=== PATIENT | male | born 1930 | race Hispanic/Latino ===

== ENCOUNTER 2018-12-30 11:19 | Emergency (ER) | payer OTHER ==
--- NOTE | 2018-12-30 12:06 | RAD REPORT ---
EXAM DESCRIPTION: CT - Head Brain Wo Cont - 12/30/2018 11:55 am CLINICAL HISTORY: headache COMPARISON: None TECHNIQUE: Computed axial tomography of the head was obtained. IV contrast was not requested. All CT scans are performed using dose optimization technique as appropriate and may include automated exposure control or mA/KV adjustment according to patient size. FINDINGS: An intracranial bleed is not seen . The ventricles are normal in caliber. No extra-axial fluid collection is noted. Moderate low-density areas within periventricular, deep and subcortical white matter likely represent ischemic changes secondary to small vessel disease. Fluid within the sinuses/ mastoids is not seen. IMPRESSION: No acute intracranial abnormality is seen. If patient's symptoms persist MRI of the bra in would be recommended.
--- NOTE | 2018-12-30 12:24 | RAD REPORT ---
EXAM DESCRIPTION: Wojciech Single View12/30/2018 12:19 pm CLINICAL HISTORY: Shortness of breath COMPARISON: 2016 FINDINGS: Moderate bilateral pulmonary opacities. Heart is mildly to moderately enlarged IMPRESSION: These findings probably represent CHF. Follow PA and lateral chest series recommended
[2018-12-30 12:37] LABS: Absolute Lymphocytes (CBC) 1.2 K/uL (0.7-4.9); Absolute Monocytes 0.8 K/uL (0.1-1.3); Absolute Neutrophil 5.6 K/uL (1.8-8.0); Basophils % 0.5 % (0-1.3); Eosinophils % 1.5 % (0-4.4); Hematocrit 23.6 % (39.6-49.0); Lymphocytes % 14.9 % (15.3-44.8); MPV 8.3 fL (7.6-11.3); Monocytes % 10.3 % (3.3-12.3); RBC Red Blood Cell Count 3.14 M/uL (4.33-5.43)
[2018-12-30] MEDS ORDERED: NA CHLORIDE 0.9% 1,000 ML ONE (12:39)
[2018-12-30 12:42] LABS: Protime INR 1.05
[2018-12-30 12:57] LABS: ALT/SGPT 10 U/L (12-78); AST/SGOT 11 U/L (15-37); Albumin 2.7 g/dL (3.4-5.0); Alkaline Phosphatase 81 U/L (45-117); BUN Blood Urea Nitrogen 22 mg/dL (7-18); Bicarbonate 21 mmol/L (21-32); Bilirubin Direct 0.1 mg/dL (0-0.2); Bilirubin Total 0.3 mg/dL (0.2-1.0); CKMB Creatine Kinase MB 1.1 ng/mL (0.3-3.6); Creatine Phosphokinase 52 U/L (39-308); Glucose Level 143 mg/dL (74-106); Lipase 267 U/L (73-393); Potassium 4.3 mmol/L (3.5-5.1); Protein, Total 6.5 g/dL (6.4-8.2); Sodium Level 139 mmol/L (136-145); Troponin (Emerg Dept Use Only) < 0.02 ng/mL (0.0-0.045)
[2018-12-30 16:02] LABS: Urine Blood NEGATIVE (NEG); Urine Glucose NEGATIVE (NEG); Urine Protein NEGATIVE (NEG); Urine pH 5.5 (5.0-7.0)
[2018-12-30 16:50] LABS: Urine Bacteria <20 /HPF (NONE SEEN); Urine Culture Reflex Order NOT NEEDED; Urine RBC <5 /HPF (NONE SEEN)
--- NOTE | 2018-12-30 17:20 | EDPHYS ---
Physician Documentation [facility] Name: Juan Carlos Lafleur Age: 88 yrs Sex: Male : 1930 Arrival Date: 12/30/2018 Time: 11:19 Bed 19 Private MD: ED Physician Isaac Bedoya HPI: 12/30 17:15 This 88 yrs old Male presents to ER via EMS with complaints of General pm1 Weakness, Headache. 17:15 The patient's problem is reported as weakness, that is generalized. pm1 17:15 Onset: The symptoms/episode began/occurred last night. Context: occurred at home. The pm1 symptoms are alleviated by nothing. The symptoms are aggravated by nothing. Associated signs and symptoms: Pertinent positives: headache, Pertinent negatives: abdominal pain, chest pain, shortness of breath, tingling, vomiting. Severity of symptoms: in the emergency department the symptoms are unchanged. Patient's baseline: Neuro: alert and fully oriented, Motor: no deficits, Speech: normal. The patient has not recently seen a physician. Historical: - Allergies: 11:22 No Known Drug Allergies; hj - PMHx: 11:22 Hypertension; Hyperlipidemia; Diabetes - NIDDM; hj - PSHx: 11:22 BKA; Wound Debridement; hj - Immunization history:: Adult Immunizations up to date. - Social history:: Smoking status: Patient/guardian denies using tobacco, Patient/guardian denies using alcohol. - Ebola Screening: : Patient negative for fever greater than or equal to 101.5 degrees Fahrenheit, and additional compatible Ebola Virus Disease symptoms Patient denies exposure to infectious person Patient denies travel to an Ebola-affected area in the 21 days before illness onset. ROS: 17:15 Constitutional: Negative for fever, chills, and weight loss, Eyes: Negative for injury, pm1 pain, redness, and discharge, ENT: Negative for injury, pain, and discharge, Neck: Negative for injury, pain, and swelling, Cardiovascular: Negative for chest pain, palpitations, and edema, Respiratory: Negative for shortness of breath, cough, wheezing, and pleuritic chest pain, Back: Negative for injury and pain, : Negative for injury, bleeding, discharge, and swelling, MS/Extremity: Negative for injury and deformity, Skin: Negative for injury, rash, and discoloration. 17:15 Abdomen/GI: Positive for diarrhea, Negative for abdominal pain, vomiting, constipation. 17:15 Neuro: Positive for headache, Negative for altered mental status, dizziness, numbness, seizure activity. Exam: 16:28 Abdomen/GI: Rectal exam: rectal tone normal, Stool: brown, guaiac negative, pm1 hemorrhoid(s), are not appreciated, mass, is not appreciated, Deny ALLAN. 17:15 Constitutional: This is a well developed, well nourished patient who is awake, alert, pm1 and in no acute distress. Head/Face: Normocephalic, atraumatic. 17:15 ENT: Nares patent. No nasal discharge, no septal abnormalities noted. Tympanic membranes are normal and external auditory canals are clear. Oropharynx with no redness, swelling, or masses, exudates, or evidence of obstruction, uvula midline. Mucous membranes moist. Neck: Trachea midline, no thyromegaly or masses palpated, and no cervical lymphadenopathy. Supple, full range of motion without nuchal rigidity, or vertebral point tenderness. No Meningismus. Chest/axilla: Normal chest wall appearance and motion. Nontender with no deformity. No lesions are appreciated. Cardiovascular: Regular rate and rhythm with a normal S1 and S2. No gallops, murmurs, or rubs. Normal PMI, no JVD. No pulse deficits. Respiratory: Lungs have equal breath sounds bilaterally, clear to auscultation and percussion. No rales, rhonchi or wheezes noted. No increased work of breathing, no retractions or nasal flaring. Abdomen/GI: Soft, non-tender, with normal bowel sounds. No distension or tympany. No guarding or rebound. No evidence of tenderness throughout. Back: No spinal tenderness. No costovertebral tenderness. Full range of motion. Skin: Warm, dry with normal turgor. Normal color with no rashes, no lesions, and no evidence of cellulitis. 17:15 Eyes: Periorbital structures: appear normal, Extraocular movements: intact throughout, Conjunctiva: normal, Corneas: are normal, Lids and lashes: appear normal, right eye blind. 17:15 Musculoskeletal/extremity: Extremities: grossly normal except: right bka and left aka. 17:15 Neuro: Orientation: is normal, Motor: is normal, moves all fours, Sensation: is normal, no obvious gross deficits. 17:15 Radiologist reports: CT negative for acute findings pm1 Vital Signs: 11:23 BP 93 / 65; Pulse 84; Resp 18; Temp 97.2(TE); Pulse Ox 98% on R/A; Weight 90.72 kg; hj Height 5 ft. 7 in. (170.18 cm); 12:00 BP 120 / 57; Pulse 76; Resp 23; Pulse Ox 96% on R/A; dh3 12:15 BP 112 / 62; Pulse 74; Resp 20; Pulse Ox 95% on R/A; dh3 13:30 BP 102 / 67; Pulse 75; Resp 18; Pulse Ox 99% on R/A; hj 14:47 BP 130 / 65; Pulse 65; Resp 18; Pulse Ox 100% on R/A; hj 15:30 BP 131 / 70; Pulse 65; Resp 18; Pulse Ox 96% on R/A; hj 16:09 BP 132 / 79; Pulse 64; Resp 18; Pulse Ox 98% on R/A; hj 17:51 BP 142 / 68; Pulse 63; Resp 18; Pulse Ox 97% on R/A; hj 11:23 Body Mass Index 31.32 (90.72 kg, 170.18 cm) hj MDM: 11:29 Patient medically screened. pm1 15:41 Counseling: I had a detailed discussion with the patient and/or guardian regarding: lab pm1 results, Pending urine sample and will send a sample of patient's diarrhea if he is able to provide one. 17:15 Data reviewed: vital signs. Data interpreted: Pulse oximetry: on room air is 98 %. pm1 Interpretation: normal. 17:16 Counseling: I had a detailed discussion with the patient and/or guardian regarding: the pm1 historical points, exam findings, and any diagnostic results supporting the discharge/admit diagnosis, lab results, radiology results, to return to the emergency department if symptoms worsen or persist or if there are any questions or concerns that arise at home. 17:28 ED course: Patient feels better after fluid hydration and wants to go home. Patient pm1 does not want to be admitted and granddaughter present in the room. Patient with negative stool guaiac and no suspected bleeding source. Anemia likely related to chronic renal disease and/or iron deficiency. Will send the patient home with iron supplementation. Unable to contact Dr. Patrick through the loading unit operator powder charging, his office phone, or his personal phone. Would like close follow up his PCP, however his phone lines appear to be down on all contact numbers. Instructed patient and family on return precautions. 12/30 11:36 Order name: Basic Metabolic Panel; Complete Time: 13:17 pm12/30 11:36 Order name: Blood Culture Adult (2) pm1 12/30 11:36 Order name: CBC with Diff; Complete Time: 13:17 pm12/30 11:36 Order name: Ckmb; Complete Time: 13:17 pm12/30 11:36 Order name: CPK; Complete Time: 13:17 pm12/30 11:36 Order name: Lactate; Complete Time: 12:53 pm12/30 11:36 Order name: LFT's; Complete Time: 13:17 pm12/30 11:36 Order name: Lipase; Complete Time: 13:17 pm12/30 11:36 Order name: Procalcitonin; Complete Time: 13:33 pm12/30 11:36 Order name: Protime (+inr); Complete Time: 12:53 pm12/30 11:36 Order name: Ptt, Activated; Complete Time: 12:53 pm12/30 11:36 Order name: Troponin (emerg Dept Use Only); Complete Time: 13:17 pm12/30 11:36 Order name: Urine Microscopic Only; Complete Time: 17:16 pm12/30 15:58 Order name: Urine Dipstick--Ancillary (enter results); Complete Time: 16:21 bd 12/30 11:36 Order name: Chest Single View XRAY; Complete Time: 12:25 pm12/30 11:36 Order name: Accucheck; Complete Time: 12:27 pm12/30 11:36 Order name: Cardiac monitoring; Complete Time: 11:40 pm12/30 11:36 Order name: EKG - Nurse/Tech; Complete Time: 11:40 pm12/30 11:36 Order name: IV Saline Lock - Large Bore; Complete Time: 12:27 pm12/30 11:36 Order name: Labs collected and sent; Complete Time: 12:27 pm1 05/29 11:36 Order name: O2 Per Protocol; Complete Time: 11:41 pm1 12/30 11:36 Order name: O2 Sat Monitoring; Complete Time: 11:41 pm1 12/30 11:36 Order name: Urine Dipstick-Ancillary (obtain specimen); Complete Time: 15:57 pm1 12/30 11:36 Order name: CT Head Brain wo Cont; Complete Time: 12:09 pm1 12/30 12:39 Order name: EKG Electrocardiogram; Complete Time: 13:39 EDMS 12/30 16:28 Order name: Occult Blood--Ancillary bd 12/30 16:30 Order name: Occult Blood--Ancillary; Complete Time: 17:16 EDMS Administered Medications: 12:29 Drug: NS 0.9% (30 ml/kg) 30 ml/kg Route: IV; Rate: bolus; Site: right forearm; hj 13:24 Follow up: to infused only NS 1L per provider hj Point of Care Testing: Blood Glucose: 12:28 Blood Glucose: 170 mg/dL; Ranges: Critical Glucose Levels:Adult <50 mg/dl or >400 mg/dl <40 mg/dl or >180 mg/dl Disposition: 12/31 07:05 Co-signature as Attending Physician, Isaac Bedoya MD I agree with the assessment and ya plan of care. Disposition: 12/30/18 17:20 Discharged to Home. Impression: Weakness, Anemia, unspecified, Diarrhea, unspecified, Dehydration. - Condition is Stable. - Discharge Instructions: Anemia, Nonspecific, Food Choices to Help Relieve Diarrhea, Adult, Dehydration, Elderly, Diarrhea, Adult, Iron-Rich Diet, General Headache Without Cause. - Prescriptions for Ferrous Sulfate 325 mg (65 mg Iron) Oral Tablet - take 1 tablet by ORAL route every 8 hours; 90 tablet. - Medication Reconciliation Form, Thank You Letter, Antibiotic Education, Prescription Opioid Use form. - Follow up: Emergency Department; When: As needed; Reason: Worsening of condition. Follow up: Private Physician; When: 2 - 3 days; Reason: Recheck today's complaints, Continuance of care, Re-evaluation by your physician. - Problem is new. - Symptoms have improved. Signatures: Dispatcher [employer] Isaac Murphy MD MD cha Joaquin, Henry RN RN Chato Mckenna, MANUEL ANNEALING OVEN OPERATOR pm1 Corrections: (The following items were deleted from the chart) 12/30 12:32 12:26 Chest Pa And Lat (2 Views)+[email or web address].[email or web address] ordered. EDRI EDMS 17:25 17:20 12/30/2018 17:20 Discharged to Home. Impression: Anemia, unspecified; Diarrhea, pm1 unspecified. Condition is Stable. Forms are Medication Reconciliation Form, Thank You Letter, Antibiotic Education, Prescription Opioid Use. Follow up: Emergency Department; When: As needed; Reason: Worsening of condition. Follow up: Private Physician; When: 2 - 3 days; Reason: Recheck today's complaints, Continuance of care, Re-evaluation by your physician. Problem is new. Symptoms have improved. pm1 17:27 17:25 12/30/2018 17:20 Discharged to Home. Impression: Anemia, unspecified; Diarrhea, pm1 unspecified; Weakness. Condition is Stable. Forms are Medication Reconciliation Form, Thank You Letter, Antibiotic Education, Prescription Opioid Use. Follow up: Emergency Department; When: As needed; Reason: Worsening of condition. Follow up: Private Physician; When: 2 - 3 days; Reason: Recheck today's complaints, Continuance of care, Re-evaluation by your physician. Problem is new. Symptoms have improved. pm1 17:52 17:27 12/30/2018 17:20 Discharged to Home. Impression: WeaknessAnemia, unspecified; hj Diarrhea, unspecified; Dehydration. Condition is Stable. Discharge Instructions: Anemia, Nonspecific, Food Choices to Help Relieve Diarrhea, Adult, Dehydration, Elderly, Diarrhea, Adult, Iron-Rich Diet, General Headache Without Cause. Prescriptions for Ferrous Sulfate 325 mg (65 mg Iron) Oral Tablet - take 1 tablet by ORAL route every 8 hours; 90 tablet. and Forms are Medication Reconciliation Form, Thank You Letter, Antibiotic Education, Prescription Opioid Use. Follow up: Emergency Department; When: As needed; Reason: Worsening of condition. Follow up: Private Physician; When: 2 - 3 days; Reason: Recheck today's complaints, Continuance of care, Re-evaluation by your physician. Problem is new. Symptoms have improved. pm1
--- NOTE | 2018-12-30 17:20 | ER ---
Nurse's Notes [facility] Name: Juan Carlos Lafleur Age: 88 yrs Sex: Male : 1930 Arrival Date: 12/30/2018 Time: 11:19 Bed 19 Private MD: Diagnosis: Anemia, unspecified;Diarrhea, unspecified;Weakness;Dehydration Presentation: 12/30 11:20 Presenting complaint: EMS states: from home, per pt, states "i don't feel good since hj last night, reports headache and general weakness; pain is 3/10; BP- 92/56; BGL- 165;. Transition of care: patient was not received from another setting of care. Onset of symptoms was December 30, 2018. Risk Assessment: Do you want to hurt yourself or someone else? Patient reports no desire to harm self or others. Initial Sepsis Screen: Does the patient meet any 2 criteria? No. Patient's initial sepsis screen is negative. Does the patient have a suspected source of infection? No. Patient's initial sepsis screen is negative. Care prior to arrival: None. 11:20 Method Of Arrival: EMS: [facility] 11:20 Acuity: SHANE 3 hj Triage Assessment: 11:22 Headache History: Denies prior headaches. General: Appears in no apparent distress. hj comfortable, Behavior is calm, cooperative, appropriate for age. Pain: Complains of pain in head Pain currently is 3 out of 10 on a pain scale. Pain began 1 day ago. Also complains of. Neuro: Level of Consciousness is awake, alert, obeys commands, Oriented to person, time, situation. Historical: - Allergies: 11:22 No Known Drug Allergies; hj - PMHx: 11:22 Hypertension; Hyperlipidemia; Diabetes - NIDDM; hj - PSHx: 11:22 BKA; Wound Debridement; hj - Immunization history:: Adult Immunizations up to date. - Social history:: Smoking status: Patient/guardian denies using tobacco, Patient/guardian denies using alcohol. - Ebola Screening: : Patient negative for fever greater than or equal to 101.5 degrees Fahrenheit, and additional compatible Ebola Virus Disease symptoms Patient denies exposure to infectious person Patient denies travel to an Ebola-affected area in the 21 days before illness onset. Screenin:22 Abuse screen: Denies threats or abuse. Denies injuries from another. Nutritional hj screening: No deficits noted. Tuberculosis screening: No symptoms or risk factors identified. Fall Risk None identified. Assessment: 11:52 Reassessment: wheeled to CT;. hj 12:30 Reassessment: Patient and/or family updated on plan of care and expected duration. Pain hj level reassessed. Patient is alert, oriented x 3, equal unlabored respirations, skin warm/dry/pink. family in room;. 13:30 Reassessment: Patient and/or family updated on plan of care and expected duration. Pain hj level reassessed. Patient is alert, oriented x 3, equal unlabored respirations, skin warm/dry/pink. able to walk towards the bathrrom;. 14:30 Reassessment: Patient and/or family updated on plan of care and expected duration. Pain hj level reassessed. Patient is alert, oriented x 3, equal unlabored respirations, skin warm/dry/pink. awaiting results;. 15:27 Reassessment: Patient and/or family updated on plan of care and expected duration. Pain hj level reassessed. Patient is alert, oriented x 3, equal unlabored respirations, skin warm/dry/pink. awaiting POC;. 16:09 Reassessment: awaiting for provider for rectal exam;. hj 16:30 Reassessment: Patient and/or family updated on plan of care and expected duration. Pain hj level reassessed. Patient is alert, oriented x 3, equal unlabored respirations, skin warm/dry/pink. assisted provider for rectal exam;. Vital Signs: 11:23 BP 93 / 65; Pulse 84; Resp 18; Temp 97.2(TE); Pulse Ox 98% on R/A; Weight 90.72 kg; hj Height 5 ft. 7 in. (170.18 cm); 12:00 BP 120 / 57; Pulse 76; Resp 23; Pulse Ox 96% on R/A; dh3 12:15 BP 112 / 62; Pulse 74; Resp 20; Pulse Ox 95% on R/A; dh3 13:30 BP 102 / 67; Pulse 75; Resp 18; Pulse Ox 99% on R/A; hj 14:47 BP 130 / 65; Pulse 65; Resp 18; Pulse Ox 100% on R/A; hj 15:30 BP 131 / 70; Pulse 65; Resp 18; Pulse Ox 96% on R/A; hj 16:09 BP 132 / 79; Pulse 64; Resp 18; Pulse Ox 98% on R/A; hj 17:51 BP 142 / 68; Pulse 63; Resp 18; Pulse Ox 97% on R/A; hj 11:23 Body Mass Index 31.32 (90.72 kg, 170.18 cm) hj ED Course: 11:19 Patient arrived in ED. hj 11:21 Triage completed. hj 11:23 Arm band placed on right wrist. hj 11:23 Patient has correct armband on for positive identification. Placed in gown. Bed in low hj position. Call light in reach. Side rails up X2. 11:29 Chato Dobbs, MANUEL is PHCP. pm1 11:29 Isaac Bedoya MD is Attending Physician. pm1 11:35 EKG done, by instructional technology facilitator. reviewed by Isaac Bedoya MD. at1 11:40 Deny Licona, JERRELL is Primary Nurse. hj 11:55 CT completed. Patient tolerated procedure well. Patient moved to CT via stretcher. Patient moved back from CT. 12:08 CT Head Brain wo Cont In Process Unspecified. EDMS 12:19 Chest Single View XRAY In Process Unspecified. EDMS 12:20 Inserted saline lock: 20 gauge in right forearm, using aseptic technique. Blood collected. 12:20 Initial lab(s) drawn, by or, sent to lab. First set of blood cultures drawn by me. hj 12:40 Second set of blood cultures drawn by me. hj 17:50 No provider procedures requiring assistance completed. IV discontinued, intact, hj bleeding controlled, No redness/swelling at site. Pressure dressing applied. Administered Medications: 12:29 Drug: NS 0.9% (30 ml/kg) 30 ml/kg Route: IV; Rate: bolus; Site: right forearm; hj 13:24 Follow up: to infused only NS 1L per provider hj Point of Care Testing: Blood Glucose: 12:28 Blood Glucose: 170 mg/dL; Ranges: Intake: Outcome: 17:20 Discharge ordered by . pm1 17:50 Discharged to home ambulatory, with family. hj 17:50 Condition: stable 17:50 Discharge instructions given to patient, family, Instructed on discharge instructions, follow up and referral plans. medication usage, Demonstrated understanding of instructions, follow-up care, medications, Prescriptions given X 1. 17:52 Patient left the ED. [email or web address] Signatures: Dispatcher [employer] EDLaureen Madrid Amanda, dairy husbandry worker EKG Tat1 Deny Licona, RN RN Chato Mckenna, MANUEL RN RECOVERY pm1 Mayra Branham 3
[2018-12-30 17:58] VITALS: TEMP 97.2
[2018-12-30 18:12] VITALS: BP 142/68; O2SAT 97
--- NOTE | 2018-12-31 11:34 | EKG ---
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
== END 2018-12-30 17:52 | disposition home or self-care (01) ==
LOC: ER 11:19
DX: R53.1 Weakness (principal); D64.9 Anemia, unspecified; R19.7 Diarrhea, unspecified; I10 Essential (primary) hypertension; E78.5 Hyperlipidemia, unspecified; E11.9 Type 2 diabetes mellitus without complications
CPT/HCPCS: 93005; 87040 ×2; 85025; 80048; 36415; 82550; 85610; 82962; 80076; 83605; 85730; 82272; 84484; 82553; 83690; 84145; 70450; 71045; 96374; 99285; J7030; 81003; 81015

== ENCOUNTER 2019-04-03 20:35 | Emergency (ER) | payer OTHER ==
[2019-04-03] MEDS ORDERED: NA CHLORIDE 0.9% 500 ML ONE (20:50)
[2019-04-03] MEDS ORDERED: MORPHINE 2 MG/ML SYR ONE (20:50)
[2019-04-03 20:58] LABS: Absolute Lymphocytes (CBC) 1.4 K/uL (0.7-4.9); Basophils % 0.6 % (0-1.3); Hematocrit 27.4 % (39.6-49.0); Lymphocytes % 23.3 % (15.3-44.8); RBC Red Blood Cell Count 3.17 M/uL (4.33-5.43)
[2019-04-03 21:12] LABS: Albumin 2.7 g/dL (3.4-5.0); Bilirubin Direct 0.1 mg/dL (0-0.2); Bilirubin Total 0.2 mg/dL (0.2-1.0); Potassium 4.6 mmol/L (3.5-5.1); Protein, Total 6.4 g/dL (6.4-8.2)
--- NOTE | 2019-04-03 23:18 | ER ---
Nurse's Notes [facility] Name: Juan Carlos Lafleur Age: 88 yrs Sex: Male : 1930 Arrival Date: 04/03/2019 Time: 20:37 Bed 2 Private MD: Diagnosis: Proctitis;Rectal Mass Presentation: 04/03 20:43 Presenting complaint: EMS states: Pt complaining of abdominal pain that started a day rv ago, pt reports bloody stool. Transition of care: patient was not received from another setting of care. Onset of symptoms was April 03, 2019. Risk Assessment: Do you want to hurt yourself or someone else? Patient reports no desire to harm self or others. Initial Sepsis Screen: Does the patient meet any 2 criteria? No. Patient's initial sepsis screen is negative. Does the patient have a suspected source of infection? No. Patient's initial sepsis screen is negative. Care prior to arrival: None. 20:43 Method Of Arrival: EMS: [facility] rv 20:43 Acuity: SHANE 3 rv Triage Assessment: 20:52 General: Appears uncomfortable, Behavior is appropriate for age. Pain: Complains of rv pain in rectal pain. EENT: No signs and/or symptoms were reported regarding the EENT system. Neuro: Level of Consciousness is awake, alert, obeys commands, Oriented to person, place, time, situation. Respiratory: Airway is patent Respiratory effort is even, unlabored, Respiratory pattern is regular, symmetrical. GI: Abdomen is round Reports rectal bleeding, rectal pain. GI: Bowel sounds present X 4 quads. :. Derm: Skin is dry, Skin is normal, Skin temperature is warm. Historical: - Allergies: 20:47 No Known Allergies; rv - Home Meds: 20:58 montelukast 10 mg oral tab 1 tab once daily [Active]; Tradjenta 5 mg oral tab 1 tab rv once daily [Active]; simvastatin 20 mg Oral tab 1 tab once daily [Active]; glipizide 10 mg Oral tab 2 tabs 2 times per day [Active]; ferrous sulfate 324 mg (65 mg iron) Oral TbEC [Active]; omeprazole 40 mg Oral cpDR 1 cap once daily [Active]; pentoxifylline 400 mg oral TbER 1 tab 3 times per day [Active]; sertraline 50 mg oral tab 1 tab once daily [Active]; carvedilol 12.5 mg oral tab 1 tab 2 times per day [Active]; Travatan Z 0.004 % ophthalmic drop 1 drop once daily [Active]; - PMHx: 20:47 Diabetes - NIDDM; Hyperlipidemia; Hypertension; rv - PSHx: 20:47 Wound Debridement; BKA; rv - Immunization history:: Adult Immunizations up to date. - Social history:: Smoking status: Patient/guardian denies using tobacco. - Ebola Screening: : No symptoms or risks identified at this time. - Family history:: not pertinent. - Hospitalizations: : No recent hospitalization is reported. Screenin:46 Abuse screen: Denies threats or abuse. Nutritional screening: No deficits noted. rv Tuberculosis screening: No symptoms or risk factors identified. Fall Risk IV access (20 points). Assessment: 20:54 Reassessment: see triage assessment. rv 21:21 Reassessment: Patient and/or family updated on plan of care and expected duration. Pain ea level reassessed. Patient is alert, oriented x 3, equal unlabored respirations, skin warm/dry/pink. 21:39 Reassessment: Patient and/or family updated on plan of care and expected duration. Pain ea level reassessed. Patient is alert, oriented x 3, equal unlabored respirations, skin warm/dry/pink. Pt taken to radiology. 21:53 Reassessment: Patient and/or family updated on plan of care and expected duration. Pain rv level reassessed. Patient is alert, oriented x 3, equal unlabored respirations, skin warm/dry/pink. Pt returned from CT. 22:33 Reassessment: Patient and/or family updated on plan of care and expected duration. Pain ea level reassessed. Patient is alert, oriented x 3, equal unlabored respirations, skin warm/dry/pink. 23:02 Reassessment: Patient and/or family updated on plan of care and expected duration. Pain ea level reassessed. Patient is alert, oriented x 3, equal unlabored respirations, skin warm/dry/pink. 23:27 Reassessment: Patient and/or family updated on plan of care and expected duration. Pain ea level reassessed. Patient is alert, oriented x 3, equal unlabored respirations, skin warm/dry/pink. Discharge instruction given to patient and family, both verbalized the understanding of instruction. Pt left ED per wheelchair, accompanied by family, pt tolerating well. Vital Signs: 20:49 BP 125 / 70; Pulse 87; Resp 18; Temp 97.8; Pulse Ox 98% on R/A; Weight 95.25 kg; Height rv 5 ft. 7 in. (170.18 cm); Pain 8/10; 21:22 BP 134 / 66; Pulse 81; Resp 18; Pulse Ox 96% ; ea 21:43 BP 128 / 70; Pulse 79; Resp 15; Pulse Ox 98% on R/A; ea 23:02 BP 140 / 71; Pulse 75; Resp 18; Pulse Ox 95% ; ea 20:49 Body Mass Index 32.89 (95.25 kg, 170.18 cm) rv ED Course: 20:37 Patient arrived in ED. ds1 20:42 Syed Hernandez MD is Attending Physician. rn 20:43 Víctor Ivey RN is Primary Nurse. rv 20:45 Triage completed. rv 20:45 Patient has correct armband on for positive identification. Bed in low position. Call rv light in reach. Side rails up X2. 20:45 Inserted saline lock: 20 gauge in left forearm, using aseptic technique. Blood rv collected. 20:51 Radiology exam delayed due to lab results not completed at this time. (BUN/Creatinine). bq 20:52 Arm band placed on right wrist. Patient placed in an exam room, on a stretcher, on rv pulse oximetry. 21:54 CT-ABD In Process Unspecified. EDMS 21:56 CT completed. Patient tolerated procedure well. Patient moved back from CT. bq 23:15 IV discontinued, intact, bleeding controlled, No redness/swelling at site. Pressure ea dressing applied. 23:16 Elias Cornelius MD is Referral Physician. rn 23:29 No provider procedures requiring assistance completed. ea Administered Medications: 20:59 Drug: morphine 2 mg {Note: RASS 1.} Route: IVP; Site: left forearm; rv 21:40 Follow up: Response: No adverse reaction; Pain is decreased; RASS: Alert and Calm (0) ea 20:59 Drug: NS 0.9% 500 ml Route: IV; Rate: bolus; Site: left forearm; rv 22:34 Follow up: Response: No adverse reaction; IV Status: Completed infusion; IV Intake: ea 500ml 23:26 Drug: Cipro 500 mg Route: PO; ea 23:27 Follow up: Response: Medication administered at discharge. ea 23: Drug: Flagyl 500 mg Route: PO; ea 23:27 Follow up: Response: Medication administered at discharge. ea Intake: 22:34 IV: 500ml; Total: 500ml. ea Outcome: 23:17 Discharge ordered by MD. rn 23:29 Discharged to home via wheelchair, with family. ea 23: Condition: stable 23:29 Discharge instructions given to patient, family, Instructed on discharge instructions, follow up and referral plans. medication usage, Demonstrated understanding of instructions, Prescriptions given X 3. 23:31 Patient left the ED. ea Signatures: Dispatcher [employer] EDMS Daysi Edmonds Demi ds1 Syed Hernandez MD MD rn Antunez, Elena, RN RN ea Vicente, Ronaldo RN JERRELL rv
--- NOTE | 2019-04-03 23:18 | EDPHYS ---
Physician Documentation [facility] Name: Juan Carlos Lafleur Age: 88 yrs Sex: Male : 1930 Arrival Date: 04/03/2019 Time: 20:37 Bed 2 Private MD: ED Physician Syed Hernandez HPI: 04/03 20:50 This 88 yrs old Male presents to ER via EMS with complaints of rectal pain. rn 20:50 The patient presents with abdominal pain rectal/lower abd. Onset: The symptoms/episode rn began/occurred last week. The symptoms do not radiate. Associated signs and symptoms: Pertinent negatives: dysuria, fever, vomiting blood. The symptoms are described as intermittent. Modifying factors: The symptoms are alleviated by nothing, the symptoms are aggravated by bowel movements. Severity of pain: At its worst the pain was moderate in the emergency department the pain has improved. The patient has not experienced similar symptoms in the past. The patient has been recently seen by a physician:. Reports rectal pain for about a week, maybe more, worse in last week, s/p colonoscopy 4 days ago, showed rectal mass, states was not sent home with pain medication and has a lot of pain with each bowel movement. Unsure if blood in stool. COlonoscopy was performed i sounds for ongoing abd pain and gradual anemia. Patient states mainly here for pain control. . Historical: - Allergies: 20:47 No Known Allergies; rv - Home Meds: 20:58 montelukast 10 mg oral tab 1 tab once daily [Active]; Tradjenta 5 mg oral tab 1 tab rv once daily [Active]; simvastatin 20 mg Oral tab 1 tab once daily [Active]; glipizide 10 mg Oral tab 2 tabs 2 times per day [Active]; ferrous sulfate 324 mg (65 mg iron) Oral TbEC [Active]; omeprazole 40 mg Oral cpDR 1 cap once daily [Active]; pentoxifylline 400 mg oral TbER 1 tab 3 times per day [Active]; sertraline 50 mg oral tab 1 tab once daily [Active]; carvedilol 12.5 mg oral tab 1 tab 2 times per day [Active]; Travatan Z 0.004 % ophthalmic drop 1 drop once daily [Active]; - PMHx: 20:47 Diabetes - NIDDM; Hyperlipidemia; Hypertension; rv - PSHx: 20:47 Wound Debridement; BKA; rv - Immunization history:: Adult Immunizations up to date. - Social history:: Smoking status: Patient/guardian denies using tobacco. - Ebola Screening: : No symptoms or risks identified at this time. - Family history:: not pertinent. - Hospitalizations: : No recent hospitalization is reported. ROS: 20:50 Constitutional: Negative for fever, chills, and weight loss, Eyes: Negative for injury, rn pain, redness, and discharge, Neck: Negative for injury, pain, and swelling, Cardiovascular: Negative for chest pain, palpitations, and edema, Respiratory: Negative for shortness of breath, cough, wheezing, and pleuritic chest pain, Abdomen/GI: Negative for nausea, vomiting, diarrhea, and constipation, MS/Extremity: Negative for injury and deformity, Skin: Negative for injury, rash, and discoloration, Neuro: Negative for headache, weakness, numbness, tingling, and seizure. Exam: 20:50 Constitutional: This is a well developed, well nourished patient who is awake, alert, rn and in no acute distress. Head/Face: Normocephalic, atraumatic. ENT: MMM Cardiovascular: Regular rate and rhythm. No pulse deficits. Respiratory: No increased work of breathing, no retractions or nasal flaring. Abdomen/GI: soft, mild lower abd tenderness, no rebound MS/ Extremity: Pulses equal, no cyanosis. Neurovascular intact. Full, normal range of motion. Equal circumference. Neuro: Awake and alert, GCS 15 Vital Signs: 20:49 BP 125 / 70; Pulse 87; Resp 18; Temp 97.8; Pulse Ox 98% on R/A; Weight 95.25 kg; Height rv 5 ft. 7 in. (170.18 cm); Pain 8/10; 21:22 BP 134 / 66; Pulse 81; Resp 18; Pulse Ox 96% ; ea 21:43 BP 128 / 70; Pulse 79; Resp 15; Pulse Ox 98% on R/A; ea 23:02 BP 140 / 71; Pulse 75; Resp 18; Pulse Ox 95% ; ea 20:49 Body Mass Index 32.89 (95.25 kg, 170.18 cm) rv MDM: 20:42 Patient medically screened. rn 23:12 Differential diagnosis:. rn 23:14 Data reviewed: vital signs, nurses notes, lab test result(s), radiologic studies, CT rn scan, and as a result, I will discharge patient. Counseling: I had a detailed discussion with the patient and/or guardian regarding: the historical points, exam findings, and any diagnostic results supporting the discharge/admit diagnosis, lab results, radiology results, the need for outpatient follow up, to return to the emergency department if symptoms worsen or persist or if there are any questions or concerns that arise at home. Response to treatment: the patient's symptoms have markedly improved after treatment, and as a result, I will discharge patient. Special discussion: I discussed with the patient/guardian in detail that at this point there is no indication for admission to the hospital. It is understood, however, that if the symptoms persist or worsen the patient needs to return immediately for re-evaluation. Based on the history and exam findings, there is no indication for further emergent testing or inpatient evaluation. I discussed with the patient/guardian the need to see the oracle database manager for further evaluation of the symptoms. ED course: Pt improved with pain medication, here primarily for tenesmus and painful bowel movements, ct shows rectal mass that was seen and biopsied this past week, and some inflammation of rectum, could be proctitis, will dc home with pain meds and abx, instructed to f/u with GI and pcp. H/H stable compared to previous obtained. . 04/03 20:43 Order name: Basic Metabolic Panel; Complete Time: :04/03 20:43 Order name: CBC with Diff; Complete Time: :04/03 20:43 Order name: Creatinine for Radiology; Complete Time: :04/03 20:43 Order name: Hepatic Function; Complete Time: :04/03 20:43 Order name: Lipase; Complete Time: :04/03 20:43 Order name: IV Saline Lock; Complete Time: 21:04/03 20:43 Order name: Labs collected and sent; Complete Time: :04/03 21:39 Order name: CT-ABD EDMS Administered Medications: 20:59 Drug: morphine 2 mg {Note: RASS 1.} Route: IVP; Site: left forearm; rv 21:40 Follow up: Response: No adverse reaction; Pain is decreased; RASS: Alert and Calm (0) ea 20:59 Drug: NS 0.9% 500 ml Route: IV; Rate: bolus; Site: left forearm; rv 22:34 Follow up: Response: No adverse reaction; IV Status: Completed infusion; IV Intake: ea 500ml 23:26 Drug: Cipro 500 mg Route: PO; ea 23:27 Follow up: Response: Medication administered at discharge. ea 23:26 Drug: Flagyl 500 mg Route: PO; ea 23:27 Follow up: Response: Medication administered at discharge. ea Disposition: 04/03/19 23:17 Discharged to Home. Impression: Proctitis, Rectal Mass. - Condition is Stable. - Discharge Instructions: Colon Mass, Adult, Proctitis. - Prescriptions for Flagyl 500 mg Oral Tablet - take 1 tablet by ORAL route every 8 hours for 10 days; 30 tablet. Tylenol- Codeine #3 300-30 mg Oral Tablet - take 1 tablet by ORAL route every 6 hours As needed; 20 tablet. Cipro 500 mg Oral Tablet - take 1 tablet by ORAL route every 12 hours for 10 days; 20 tablet. - Medication Reconciliation Form, Thank You Letter, Antibiotic Education, Prescription Opioid Use form. - Follow up: Elias Cornelius MD; When: As needed; Reason: Recheck today's complaints, Re-evaluation by your physician. - Problem is an ongoing problem. - Symptoms have improved. Signatures: Dispatcher [employer] Syed Pope MD MD rn Antunez, Elena, RN RN Víctor Vviar RN RN rv Corrections: (The following items were deleted from the chart) 21:39 20:44 Abdomen Pelvis W Con+CT.RAD.BRZ ordered. [facility] 23:31 23:17 04/03/2019 23:17 Discharged to Home. Impression: Proctitis; Rectal Mass. ea Condition is Stable. Forms are Medication Reconciliation Form, Thank You Letter, Antibiotic Education, Prescription Opioid Use. Follow up: Elias Cornelius; When: As needed; Reason: Recheck today's complaints, Re-evaluation by your physician. Problem is an ongoing problem. Symptoms have improved. rn
[2019-04-03] MEDS ORDERED: metroNIDAZOLE 500 MG TABLET ONE (23:23)
[2019-04-03] MEDS ORDERED: CIPROFLOXACIN HCL 500 MG TAB ONE (23:23)
[2019-04-03 23:39] VITALS: TEMP 97.8
[2019-04-03 23:43] VITALS: BP 140/71; O2SAT 95
--- NOTE | 2019-04-05 11:25 | RAD REPORT ---
EXAM DESCRIPTION: CT - CT-ABD PELVIS W/O CONTRAST - 04/03/2019 10:43 pm CLINICAL HISTORY: The patient is 88 years old and is Male; rectal pain, known mass TECHNIQUE: Axial computed tomography images of the abdomen and pelvis without intravenous contrast. Sagittal and coronal reformatted images were created and reviewed. This CT exam was performed usi ng one or more of the following dose reduction techniques: automated exposure control, adjustment o f the mA and/or kV according to patient size, and/or use of iterative reconstruction technique. COMPARISON: No relevant prior studies available. FINDINGS: ARTIFACTS: The exam is suboptimal secondary to motion artifact. LUNG BASES: Fibrotic change in the lung bases is noted. HEART: The heart is prominent. ABDOMEN: LIVER: Homogeneous without focal mass. GALLBLADDER AND BILE DUCTS: No calcified stones. No ductal dilation. PANCREAS: Unremarkable. No ductal dilation. SPLEEN: Unremarkable. ADRENALS: Unremarkable. No mass. KIDNEYS AND URETERS: Multiple left renal cysts are present, the largest of which measures 2.7 cm No follow-up imaging is recommended. Nonspecific perinephric stranding is noted bilaterally. No hydr onephrosis or hydroureter of either kidney is seen. STOMACH AND BOWEL: The stomach is well distended with food contents and air. Small bowel is norm al in caliber. Stool is present throughout colon. Asymmetric wall thickening along the left aspect of the rectum is present. Mild perirectal fat stranding is present. There is no bowel obstruction. PELVIS: APPENDIX: No findings to suggest acute appendicitis. BLADDER: Unremarkable. No stones. REPRODUCTIVE: Unremarkable as visualized. ABDOMEN and PELVIS: INTRAPERITONEAL SPACE: Unremarkable. No free air. No significant fluid collection. BONES/JOINTS: Multilevel degenerative change of the spine is present. SOFT TISSUES: The soft tissues are normal. VASCULATURE: Atherosclerosis of the vasculature is present. The vessels are normal in caliber. No abdominal aortic aneurysm. LYMPH NODES: Unremarkable. No enlarged lymph nodes. IMPRESSION: 1. Mild perirectal stranding which may be secondary to proctitis. 2. Focal asymmetric wall thickening of the rectum likely represents patient's known rectal mass. Electronically signed by: Leida Campa MD 04/03/2019 10:15 PM CDT Due to temporary technical issues with the PACS/Fluency reporting system, reports are being signed by the in house radiologist as a courtesy to ensure prompt reporting. The interpreting radiologist is edith garcia responsible for the content of the report.
== END 2019-04-03 23:31 | disposition home or self-care (01) ==
LOC: ER 20:35
DX: K62.9 Disease of anus and rectum, unspecified (principal); E11.9 Type 2 diabetes mellitus without complications; E78.5 Hyperlipidemia, unspecified; I10 Essential (primary) hypertension
CPT/HCPCS: 96361; 85025; 80048; 36415; 80076; 83690; 74176; 96374; 99285; J2270